=== PATIENT | female | born 2000 | race Caucasian/White ===

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

== ENCOUNTER 2021-04-15 06:51 | Observation (INO) ==
[2021-04-15] MEDS ORDERED: Lactated Ringers 1000 ml BAG 1,000 ML IV ONE ×2 (07:10→13:06)
[2021-04-15] MEDS ORDERED: Droperidol 5 MG/2 ML 2 ML VIAL IV ONE (07:10)
[2021-04-15 08:01] LABS: ABS Eosinophils 0.1 10^3/ul (0-0.6); ABS Lymphocytes 1.4 10^3/ul (1.0-4.8); ABS Monocytes 0.4 10^3/ul (0-0.8); ABS Neutrophils 6.4 10^3/ul (1.5-7.7); Hematocrit 38 % (35-47); Hemoglobin 12.9 g/dL (12.0-16.0); Lymphocyte % 16.8 %; Mean Corpuscular HGB Conc 34 g/dL (31-36); Mean Corpuscular Hemoglobin 33 pg (27-31); Mean Corpuscular Volume 95 fL (80-97); Mean Platelet Volume 9.6 fL (7.4-10.4); Platelet Count 242 10^3/uL (150-450); Red Blood Count 3.96 10^6 /uL (3.70-4.87); Red Cell Distribution Width 13 % (10-15); White Blood Count 8.3 10^3/uL (3.5-10.8)
[2021-04-15 08:18] LABS: ALT 10 U/L (7-52); AST 17 U/L (13-39); Albumin 4.7 g/dL (3.2-5.2); Albumin/Globulin Ratio 1.5 (1-3); Alkaline Phosphatase 47 U/L (35-149); Anion Gap 10 mmol/L (2-11); Blood Urea Nitrogen 8 mg/dL (6-24); CO2 Carbon Dioxide 21 mmol/L (22-32); Calcium 10.1 mg/dL (8.6-10.3); Chloride 108 mmol/L (101-111); EGFR African American 99.5 (>60); EGFR Non-African American 82.2 (>60); Globulin 3.1 g/dL (2-4); Glucose 102 mg/dL (70-100); Potassium 3.8 mmol/L (3.5-5.0); Sodium 139 mmol/L (135-145); Total Protein 7.8 g/dL (6.4-8.9)
[2021-04-15 08:25] LABS: HCG Pregnancy < 0.60 mIU/mL
[2021-04-15] MEDS ORDERED: NS 0.9% 1000 ml BAG 1,000 ML IV ONE (09:36)
[2021-04-15] MEDS ORDERED: diPHENhydraMINE IV 50 MG/ML 1 ml VIAL (BENADRYL) SLOW PUSH ONE (10:12)
[2021-04-15] MEDS ORDERED: Lorazepam PYXIS KEY PRN ×3 (12:12→17:19)
[2021-04-15] MEDS ORDERED: LORazepam 2 mg VIAL 1 ml IV PUSH ONE ×2 (12:12→15:23)
[2021-04-15] MEDS ORDERED: Magnesium Sulfate 2 gm BAG 2 GM/50 ML BAG IVPB ONE (15:28)
[2021-04-15 15:52] LABS: Urine Benzodiazepine Screen None Detected (None Detect); Urine Cannabinoids Screen Presumptive Positive (None Detect); Urine Opiates Screen None Detected (None Detect)
[2021-04-15 16:48] LABS: TSH Ultra Thyroid Stim Horm 0.73 mcIU/mL (0.34-5.60)
[2021-04-15 16:50] LABS: Free T4 1.01 ng/dL (0.61-1.12)
[2021-04-15] MEDS ORDERED: Ondansetron 4 mg VIAL 2 MG/ML 2 ml VIAL IV PRN (17:15)
[2021-04-15] MEDS ORDERED: LORazepam 2 mg VIAL 1 ml IV PUSH PRN (17:19)
[2021-04-15 17:42] LABS: Rapid COVID-19 Molecular Undetected (Undetected)
[2021-04-15] MEDS: NS 0.9% 1000 ml BAG 1,000 ML IV SCH (22:40)
[2021-04-16 06:34] LABS: Calcium 9.2 mg/dL (8.6-10.3); Potassium 3.6 mmol/L (3.5-5.0)
[2021-04-16 06:40] LABS: EGFR African American 127.8 (>60); EGFR Non-African American 105.6 (>60)
[2021-04-16] MEDS ORDERED: Magnesium Sulfate 2 gm BAG 2 GM/50 ML BAG IVPB ONE ×2 (10:36→15:00)
[2021-04-16] MEDS ORDERED: KCL 20 MEQ/100 ML IVPREMIX 20 MEQ/100 ML BAG IV SCH ×3 (11:00→17:00)
[2021-04-16 17:03] LABS: Magnesium 2.2 mg/dL (1.9-2.7)
[2021-04-17] MEDS: KCL 20 MEQ/100 ML IVPREMIX 20 MEQ/100 ML BAG IV SCH ×2 (00:42→04:32)
[2021-04-17] MEDS: NS 0.9% 1000 ml BAG 1,000 ML IV SCH ×3 (00:44→10:33)
[2021-04-17] MEDS ORDERED: NS 0.9% 1000 ml BAG 1,000 ML IV ONE (07:39)
[2021-04-17 08:53] LABS: ABS Lymphocytes 0.9 10^3/ul (1.0-4.8); ABS Monocytes 0.2 10^3/ul (0-0.8); ABS Neutrophils 5.1 10^3/ul (1.5-7.7); Eosinophil % 0.2 %; Hematocrit 37 % (35-47); Hemoglobin 12.4 g/dL (12.0-16.0); Mean Corpuscular HGB Conc 34 g/dL (31-36); Mean Corpuscular Hemoglobin 33 pg (27-31); Mean Corpuscular Volume 97 fL (80-97); Mean Platelet Volume 9.5 fL (7.4-10.4); Platelet Count 218 10^3/uL (150-450); Red Blood Count 3.77 10^6 /uL (3.70-4.87); Red Cell Distribution Width 13 % (10-15); White Blood Count 6.2 10^3/uL (3.5-10.8)
[2021-04-17 08:57] LABS: Albumin 4.3 g/dL (3.2-5.2); Albumin/Globulin Ratio 1.5 (1-3); Calcium 9.1 mg/dL (8.6-10.3); EGFR African American 119.9 (>60); EGFR Non-African American 99.1 (>60); Globulin 2.9 g/dL (2-4); Total Bilirubin 1.8 mg/dL (0.2-1.0); Total Protein 7.2 g/dL (6.4-8.9)
[2021-04-17 10:58] LABS: Direct Bilirubin 0.2 mg/dL (0.03-0.18)
[2021-04-18 00:54] VITALS: BP 118/68
== END 2021-04-17 17:43 | disposition home or self-care (01) ==
LOC: ED 06:51 → MED 06:51 → SUATTDRO 17:15
PROVIDERS: ADMIT Student in an Organized Health Care Education/Training Program; ATTEND Internal Medicine